=== PATIENT | male | born 1960 | race Two or more races ===

== ENCOUNTER 2021-01-02 19:52 | Emergency (ER) | payer OTHER ==
[~2021-01-02] VITALS: Ht 172.7 cm; Wt 73.0 kg
[2021-01-02] MEDS ORDERED: ACETAMINOPHEN 325MG TABLET PO STA (22:01)
[2021-01-02 23:23] LABS: BASOPHILS % 0.8 % (0.0-2.0); EOSINOPHILS % 0.9 % (0.0-5.0); HEMATOCRIT. 36.2 % (42.0-52.0); HEMOGLOBIN. 11.9 g/dL (14.0-18.0); LYMPHOCYTES % 43.1 % (20.0-50.0); MEAN CORPUSCULAR VOLUME 84.9 fL (80.0-94.0); MEAN PLATELET VOLUME 8.3 fl (7.4-10.4); MONOCYTES % 12.5 % (2.0-8.0); NEUTROPHILS % 42.7 % (40.0-76.0); PLATELET 129 x1000/uL (130-400); RED BLOOD CELL COUNT 4.26 mill/uL (4.7-6.1); RED CELL DISTRIBUTION WIDTH 20.7 % (11.6-14.6)
[2021-01-02 23:29] LABS: CHLORIDE 110 mEq/L (98-107)
[2021-01-03 00:49] LABS: ETHANOL BLOOD 328 mg/dL
[2021-01-03 05:10] VITALS: BP 169/97
== END 2021-01-03 05:18 | disposition home or self-care (01) ==
LOC: ER 19:52
DX: F10.229 Alcohol dependence with intoxication, unspecified (principal); Y90.8 Blood alcohol level of 240 mg/100 ml or more; M79.661 Pain in right lower leg; I10 Essential (primary) hypertension; Z98.890 Other specified postprocedural states
CPT/HCPCS: 36415; 73590; 80053; 80320; 85025; 99285; G0480

== ENCOUNTER 2021-07-08 23:24 | Emergency (ER) | payer MEDICAID, OTHER ==
[~2021-07-08] VITALS: Ht 182.9 cm; Wt 69.0 kg
[2021-07-09] MEDS ORDERED: SODIUM CHLORIDE 0.9% 1,000 ML IV ONE (00:15)
[2021-07-09 00:36] LABS: BASOPHILS % 1.4 % (0.0-2.0); EOSINOPHILS % 1.7 % (0.0-5.0); HEMATOCRIT. 33.7 % (42.0-52.0); LYMPHOCYTES % 52.2 % (20.0-50.0); MEAN CORPUSCULAR HEMOGLOBIN 27.9 pg (28.0-32.0); MEAN CORPUSCULAR VOLUME 85.4 fL (80.0-94.0); MEAN PLATELET VOLUME 8.3 fl (7.4-10.4); NEUTROPHILS % 34.7 % (40.0-76.0); PLATELET 239 x1000/uL (130-400); RED BLOOD CELL COUNT 3.94 mill/uL (4.7-6.1); RED CELL DISTRIBUTION WIDTH 21.5 % (11.6-14.6)
[2021-07-09 00:44] LABS: CHLORIDE 113 mEq/L (98-107)
[2021-07-09 00:51] LABS: VALPROIC ACID <3.0 ug/mL ug/mL (50-100)
[2021-07-09 01:03] LABS: CARBAMAZEPINE < 0.5 ug/mL (4-12); ETHANOL BLOOD 331 mg/dL; PHENOBARBITAL < 2.1 ug/mL (15.0-40.0)
[2021-07-09] MEDS ORDERED: PHENYTOIN SODIUM 1,000 MG in SODIUM CHLORIDE 0.9% 100 ML IV ONE (01:45)
[2021-07-09] MEDS ORDERED: PHEN100C4 MT (02:26)
[2021-07-09 05:40] VITALS: BP 177/86
== END 2021-07-09 14:25 | disposition home or self-care (01) ==
LOC: ER 23:24
DX: F10.129 Alcohol abuse with intoxication, unspecified (principal); R56.9 Unspecified convulsions; I10 Essential (primary) hypertension; Z91.19 Patient's noncompliance with other medical treatment and regimen; Y90.8 Blood alcohol level of 240 mg/100 ml or more
CPT/HCPCS: 36415; 80053; 80156; 80165; 80184; 80185; 80320; 82962; 85025; 93005; 96361; 96365; 99284; J1165; J7030; J7050; G0480